=== PATIENT | female | born 1950 | race Caucasian/White ===

== ENCOUNTER → 2022-01-25 14:12 | Outpatient (CLI) | payer MEDICARE, SELFPAY ==
--- NOTE | ~2022-01-25 | MR_ITS ---
EXAMINATION: MR lumbar spine wo con DATE: 01/25/2022 14:55 INDICATION: Other low back pain. TECHNIQUE: Magnetic resonance imaging (MRI) of the lumbar spine was performed without intravenous con trast. Sequences included sagittal T2-weighted FSE, sagittal T2-weighted FS FSE, sagittal T1-weighted FSE, and axial T2-weighted FSE. COMPARISON: None FINDINGS: There is 14 degrees levoscoliosis of lumbar spine. There is 3 mm retrolisthesis of L2 on L3 and L3 on L4. Vertebral body heights are normal. There is moderately decreased disc height at L2-L3, severely decreased disc height at L3-L4, moderately decreased disc height at L4-L5, and severely dec reased disc height at L5-S1 with endplate remodeling. The distal spinal cord signal intensity is norm al. The conus medullaris is at L1. The following disc levels are specifically discussed: L1-L2: The disc does not extend beyond the endplate margin. There is mild bilateral facet joint osteo arthritis. There is no neural foraminal stenosis. There is no central canal stenosis. L2-L3: The disc is bulging and has an annular fissure. There is severe bilateral facet joint osteoart hritis. There is mild bilateral neural foraminal stenosis. There is mild central canal stenosis. L3-L4: The disc is bulging and has an annular fissure. There is severe bilateral facet joint osteoart hritis. There is mild bilateral neural foraminal stenosis. There is mild central canal stenosis. L4-L5: The disc is bulging and has an annular fissure. There is severe bilateral facet joint osteoart hritis. There is mild bilateral neural foraminal stenosis. There is mild central canal stenosis. L5-S1: The disc is bulging and has an annular fissure. There is severe bilateral facet joint osteoart hritis. There is moderate left neural foraminal stenosis. There is mild central canal stenosis. IMPRESSION: 1. Severe lumbar spondylosis. 2. Lumbar levoscoliosis. Reviewed, dictated and finalized at location A.
== END ==
PROVIDERS: PCP Internal Medicine; Visit Provider Nurse Practitioner Family
DX: M47.896 Other spondylosis, lumbar region (principal)
CPT/HCPCS: 72148

== ENCOUNTER 2022-04-21 01:37 | Day surgery (SDC) | payer MEDICARE, SELFPAY ==
[2022-04-08 14:22] VITALS: BMI 30.2
[2022-04-21 08:22] VITALS: BP 115/59; PULSE 86; RESP 20; TEMP 36.2; O2SAT 100; BMI 30.3
[2022-04-21] MEDS: LACTATED RINGERS 1,000 ML 150 ML IV CONT (08:33)
[2022-04-21 08:38] LABS: Glucose Point of Care 171 mg/dl (65-105)
--- NOTE | 2022-04-21 09:00 | PM.HPGS ---
History of Present Illness History of Present Illness Consent: Risks, benefits, and alternatives have been discussed and questions answered. Patient agrees to proceed with procedure. Chief complaint: GERD Narrative: Carrie Yeung is a 71 year old female referred because of epigastric pain and bloating. She also has had heartburn. She has been started on Nexium by her primary care provider. She denies dysphagia or weight loss. Review of Systems Review of Systems: All systems reviewed & are unremarkable except as noted in HPI and below PMFSH Social History Social History Years smoked: 40 Smoking status: Light tobacco smoker Tobacco type: cigarettes Alcohol intake: never Substance use: current Substance use type: does not use Living arrangements: with family Spiritual care concerns: No Meds Home Medications and Allergies Home Medications Medication Instructions Recorded Confirmed Type Anoro Ellipta 1 puff inhalation DAILY 03/19/22 04/21/22 History albuterol sulfate 90 mcg inhalation PRN PRN 03/19/22 04/21/22 History Shortness Of Breath atorvastatin 40 mg BYMOUTH DAILY 03/19/22 04/21/22 History glimepiride 4 mg BYMOUTH DAILY 03/19/22 04/21/22 History hydrochlorothiazide 12.5 mg BYMOUTH DAILY 03/19/22 04/21/22 History imipramine HCl 50 mg BYMOUTH DAILY 03/19/22 04/21/22 History latanoprost 0.005 % EACH EYE DAILY 03/19/22 04/21/22 History levothyroxine 25 mcg BYMOUTH DAILY 03/19/22 04/21/22 History lorazepam 1 mg BYMOUTH DAILY 03/19/22 04/21/22 History losartan 25 mg BYMOUTH DAILY 03/19/22 04/21/22 History metformin 500 mg BYMOUTH DAILY 03/19/22 04/21/22 History pantoprazole 40 mg BYMOUTH DAILY 03/19/22 04/21/22 History insulin degludec 200 unit/mL (3 20 unit subcut DAILY 04/08/22 04/21/22 History mL) subcutaneous pen (Tresiba FlexTouch U-200 insulin) Allergies Allergy/AdvReac Type Severity Reaction Status Date / Time azithromycin AdvReac Abdominal Verified 04/21/22 08:22 Pain Vital Signs Vital Signs - 24 hr 04/21/22 08:22 Temperature 36.2 C L Pulse Rate 86 Respiratory Rate 20 Blood Pressure 115/59 L Pulse Oximetry 100 Oxygen Delivery Room Air Exam Const: General: alert Orientation/consciousness: patient oriented x3 Resp: Auscultation: clear to auscultation bilaterally Cardio: Rhythm: regular rhythm GI: GI Palp: Yes Soft to palpation and No Tenderness to palpation present (GI) Neuro: General: patient oriented x3 Assessment and Plan Assessment and plan (1) Epigastric pain: Code(s): R10.13 - Epigastric pain Status: Acute Assessment and Plan: EGD with possible biopsy or dilatation or cautery.
--- NOTE | 2022-04-21 09:03 | P.PNAN_ITS ---
Anes - Initial Pre Proc Eval Procedure: Operation Date: 04/21/22 09:30 Proposed Procedures p Esophagogastroduodenoscopy - Catrachito Hyman MD Date/Time: 04/21/22 09:03 Surgeon: Catrachito Hyman MD Pre Op Diagnosis: GERD Patient Data Age: 71 Gender: F Height: 1.63 m Weight: 80.1 kg Last Vital Signs Temp 36.2 C L 04/21/22 08:22 Pulse 86 04/21/22 08:22 Resp 20 04/21/22 08:22 BP 115/59 L 04/21/22 08:22 Pulse Ox 100 04/21/22 08:22 O2 Del Method Room Air 04/21/22 08:22 Allergies Allergy/AdvReac Type Severity Reaction Status Date / Time azithromycin AdvReac Abdominal Verified 04/21/22 08:22 Pain Home Medications Medication Instructions Recorded Confirmed Type Anoro Ellipta 1 puff inhalation DAILY 03/19/22 04/21/22 History albuterol sulfate 90 mcg inhalation PRN PRN 03/19/22 04/21/22 History Shortness Of Breath atorvastatin 40 mg BYMOUTH DAILY 03/19/22 04/21/22 History glimepiride 4 mg BYMOUTH DAILY 03/19/22 04/21/22 History hydrochlorothiazide 12.5 mg BYMOUTH DAILY 03/19/22 04/21/22 History imipramine HCl 50 mg BYMOUTH DAILY 03/19/22 04/21/22 History latanoprost 0.005 % EACH EYE DAILY 03/19/22 04/21/22 History levothyroxine 25 mcg BYMOUTH DAILY 03/19/22 04/21/22 History lorazepam 1 mg BYMOUTH DAILY 03/19/22 04/21/22 History losartan 25 mg BYMOUTH DAILY 03/19/22 04/21/22 History metformin 500 mg BYMOUTH DAILY 03/19/22 04/21/22 History pantoprazole 40 mg BYMOUTH DAILY 03/19/22 04/21/22 History insulin degludec 200 unit/mL (3 20 unit subcut DAILY 04/08/22 04/21/22 History mL) subcutaneous pen (Tresiba FlexTouch U-200 insulin) Laboratory Tests 04/21/22 08:36 POC Capillary Glucose 171 mg/dl H mg/dl (65-105) Patient hx anesthesia problems: none Family hx anesthesia problems: none Results Review: All pre-operative results and documents have been reviewed as part of the pre- operative evaluation. [facility] Social History Social History Years smoked: 40 Smoking status: Light tobacco smoker Tobacco type: cigarettes Alcohol intake: never Substance use: current Substance use type: does not use Living arrangements: with family Spiritual care concerns: No Anes - Eval Final PreProcedure Day of Procedure 04/21/22 09:03 Patient weight: obese Heart: regular rate and rhythm Lungs: clear to auscultation Airway: Mallampati scale class II Last oral intake: >/= 8 hours ASA classification: III Emergent: no Anesthetic plan: proceed Anesthesia type and monitoring: general GIVS and standard monitoring Results Review: All pre-operative results and documents have been reviewed as part of the pre- operative evaluation. Informed Consent: The patient's anesthetic plan and its attendant risks and benefits were discussed with the patient/family/POA. Questions were solicited and answers provided to the satisfaction of the patient/family/POA.
[2022-04-21 09:43] VITALS: BP 90/52; PULSE 82; RESP 14; O2SAT 100
[2022-04-21 09:53] VITALS: BP 92/39; PULSE 67; RESP 14; O2SAT 100
[2022-04-21 10:03] VITALS: BP 91/49; PULSE 64; RESP 12; O2SAT 100
== END 2022-04-21 10:29 | disposition home or self-care (01) ==
PROVIDERS: PCP Internal Medicine; Visit Provider Internal Medicine Gastroenterology
PROC: 0DJ08ZZ Inspection of Upper Intestinal Tract, Via Natural or Artificial Opening Endoscopic (ICD-10-PCS; CPT 43235; principal; 2022-04-21 09:30)
DX: K29.70 Gastritis, unspecified, without bleeding (principal); F17.210 Nicotine dependence, cigarettes, uncomplicated; E66.9 Obesity, unspecified; Z68.30 Body mass index [BMI] 30.0-30.9, adult; Z79.84 Long term (current) use of oral hypoglycemic drugs; Z79.4 Long term (current) use of insulin
CPT/HCPCS: 43239; 82948; 87081; J2704; J7120